=== PATIENT | female | born 1985 | race Caucasian/White ===

== ENCOUNTER 2016-11-09 11:54 | Emergency (ER) | payer MEDICAID ==
[~2016-11-09] VITALS: Ht 167.6 cm; Wt 86.2 kg
[~2016-11-09 11:54] MED LIST: AMOXIL500 M1 PO; CELEXA; ELIMITE60 GM TOP; FLAGYL PO; FLEXERIL10 MG PO; HCTZ; KEFLEX500 M1 PO; MOTRIN600 M1 PO; MOTRIN600 MG PO; NAPROSYN500 MG PO; NEURONTIN; NORCO 5/325 TAB1 TAB PO; NORVASC; ORUDIS75 M1 PO; PEN-VEE K PO; PRILOSEC20 M1 PO; TRAMADOL HCL50 M1 PO; TRAZODONE; VIBRAMYCIN100 M1 PO; VOLTAREN50 MG PO; VOLTAREN75 MG PO
== END 2016-11-09 16:12 | disposition left against medical advice (07) ==
LOC: CED 11:54
DX: Z53.21 Procedure and treatment not carried out due to patient leaving prior to being seen by health care provider (principal)